=== PATIENT | male | born 1985 | race African-American/Black ===

== ENCOUNTER 2017-09-04 02:15 | Emergency (ER) | payer OTHER ==
[~2017-09-04] VITALS: Ht 182.9 cm; Wt 104.5 kg
[~2017-09-04 02:15] MED LIST: ALBU8HFA IH
[2017-09-04] MEDS ORDERED: IPRATROPIUM BROMIDE 0.5 MG/2.5 ML NEB SOLUTION NEB ONE (02:30)
[2017-09-04] MEDS ORDERED: ALBUTEROL SULFATE 2.5 MG/0.5 ML NEB SOLUTION NEB ONE (02:30)
[2017-09-04] MEDS ORDERED: DEXAMETHASONE SOD PHOS 4 MG/ML 5 ML VIAL IVP ONE (02:45)
[2017-09-04] MEDS ORDERED: SODIUM CHLORIDE 0.9% 500 ML IV ONE (02:45)
[2017-09-04] MEDS ORDERED: MAGNESIUM SULFATE 2 GM in DEXTROSE 5%-WATER 50 ML IV ONE (02:45)
[2017-09-04] MEDS ORDERED: LORazepam 2 MG/ML VIAL IVP ONE (03:15)
[2017-09-04 05:25] VITALS: BP 113/68
== END 2017-09-04 05:41 | disposition home or self-care (01) ==
LOC: EMS 02:15
DX: J45.909 Unspecified asthma, uncomplicated (principal); F17.210 Nicotine dependence, cigarettes, uncomplicated; F12.90 Cannabis use, unspecified, uncomplicated; Z91.013 Allergy to seafood
CPT/HCPCS: 71045; 94640; 96365; 96366; 96375; 99285; J1100; J3475; J7040; J7060; J7613

== ENCOUNTER 2018-07-17 09:31 | Emergency (ER) | payer MEDICAID, OTHER ==
[~2018-07-17] VITALS: Ht 180.3 cm; Wt 97.3 kg
[2018-07-17] MEDS ORDERED: IBUPROFEN 600 MG TABLET PO ONE (10:15)
[2018-07-17] MEDS ORDERED: IPRATROPIUM BROMIDE 0.5 MG/2.5 ML NEB SOLUTION NEB ONE (10:15)
[2018-07-17] MEDS ORDERED: PredniSONE 20 MG TABLET PO ONE (10:15)
[2018-07-17] MEDS ORDERED: ALBUTEROL SULFATE 5 MG/ML 20 ML NEB SOLN [BULK] NEB ONE (10:15)
[2018-07-17] MEDS ORDERED: ALBUTEROL SULFATE HFA 90 MCG/PUFF 8 GM INHALER IH ONE (12:15)
[2018-07-17 12:23] VITALS: BP 128/70
== END 2018-07-17 12:26 | disposition home or self-care (01) ==
LOC: EMS 09:31
DX: J45.909 Unspecified asthma, uncomplicated (principal); F17.210 Nicotine dependence, cigarettes, uncomplicated; F12.90 Cannabis use, unspecified, uncomplicated; Z79.899 Other long term (current) drug therapy; Z91.013 Allergy to seafood
CPT/HCPCS: 71045; 94640; 94644; 99285; 99406; J7512; J3535

== ENCOUNTER 2019-10-22 08:28 | Emergency (ER) | payer MEDICAID, OTHER ==
[~2019-10-22] VITALS: Ht 180.3 cm; Wt 109.1 kg
[2019-10-22] MEDS ORDERED: HYDROCODONE/ACETAMINOPHEN 5-325 MG TABLET PO ONE (10:30)
[2019-10-22] MEDS ORDERED: IBUPROFEN 800 MG TABLET PO ONE (10:30)
[2019-10-22 12:52] VITALS: BP 123/72
== END 2019-10-22 13:27 | disposition home or self-care (01) ==
LOC: EMS 08:33
DX: S30.0XXA Contusion of lower back and pelvis, initial encounter (principal); R03.0 Elevated blood-pressure reading, without diagnosis of hypertension; J45.909 Unspecified asthma, uncomplicated; F17.210 Nicotine dependence, cigarettes, uncomplicated; F12.90 Cannabis use, unspecified, uncomplicated; Z91.013 Allergy to seafood; W01.0XXA Fall on same level from slipping, tripping and stumbling without subsequent striking against object, initial encounter; Y93.01 Activity, walking, marching and hiking; Y92.89 Other specified places as the place of occurrence of the external cause; Y99.8 Other external cause status
CPT/HCPCS: 72100; 72220

== ENCOUNTER 2021-03-22 11:30 | Emergency (ER) | payer OTHER ==
[~2021-03-22] VITALS: Ht 182.9 cm; Wt 113.6 kg
[2021-03-22 12:42] VITALS: BP 120/81
== END 2021-03-22 12:57 | disposition home or self-care (01) ==
LOC: EMS 11:56
DX: Z76.89 Persons encountering health services in other specified circumstances (principal); F17.210 Nicotine dependence, cigarettes, uncomplicated
CPT/HCPCS: 99281; Z7502